=== PATIENT | female | born 1970 | race Caucasian/White ===

== ENCOUNTER 2020-04-22 07:51 | Outpatient (REF) | payer OTHER, SELFPAY ==
--- NOTE | 2020-04-22 08:10 | MR_ITS ---
EXAMINATION: MR BRAIN WITHOUT AND WITH CONTRAST CLINICAL INFORMATION: Pseudotumor. Chiari malformation. Headache. COMPARISON: Head CT 08/29/2019. TECHNIQUE: Multiplanar, multisequence imaging of the brain was performed before and after the intravenous administration of 10 mL of Gadavist. FINDINGS: There is no acute infarct, lobar hemorrhage, mass, or extra-axial fluid collection. Mild nonspecific foci of T2 hyperintensity are seen in the bilateral cerebral white matter. The ventricular caliber appears normal without hydrocephalus. No enhancing lesion is seen. Sequela of Chiari I decompression is noted. There is no effacement of the cervicomedullary CSF. The upper cervical cord is grossly normal without syrinx. The previously seen pseudomeningocele has resolved. The major arterial flow voids are preserved at the skull base. The orbital contents appear normal. No significant paranasal sinus or mastoid fluid is seen. MR/MR head/brain wo/w con IMPRESSION: No acute intracranial abnormality identified. No infarct or enhancing lesion. Sequela of Chiari I decompression noted with interval resolution of previous pseudomeningocele.
== END 2020-04-22 07:52 | disposition home or self-care (01) ==
LOC: HO.MRI 07:51
PROVIDERS: PCP Internal Medicine; Visit Provider Neurological Surgery
DX: G93.2 Benign intracranial hypertension (principal); G93.5 Compression of brain; R51.9 Headache, unspecified; I82.0 Budd-Chiari syndrome
CPT/HCPCS: 70553; A9585

== ENCOUNTER 2020-07-12 13:30 | Outpatient (REF) | payer OTHER, SELFPAY ==
--- NOTE | 2020-07-12 13:35 | XR_ITS ---
EXAMINATION: XR KNEE, LEFT CLINICAL INFORMATION: Sprain COMPARISON: Previous x-ray September 2019 TECHNIQUE: Four views of the left knee. FINDINGS: Bone alignment is normal. No fracture or dislocation is seen. There are small osteophytes at the medial femoral tibial joint. Joint spaces are otherwise normal. There is no joint effusion. XR/XR knee LT 4V IMPRESSION: No fracture or dislocation. Mild degenerative changes.
== END 2020-07-12 13:31 | disposition home or self-care (01) ==
LOC: HO.HMGCX 13:30
PROVIDERS: PCP Internal Medicine; Visit Provider Physician Assistant
DX: S83.422A Sprain of lateral collateral ligament of left knee, initial encounter (principal)
CPT/HCPCS: 73564

== ENCOUNTER 2020-07-19 19:48 | Emergency (ER) | payer OTHER, SELFPAY | END 2020-07-19 21:41 | disposition left against medical advice (07) | PROVIDERS: Emergency Provider Emergency Medicine; PCP Internal Medicine | DX: T14.90XA Injury, unspecified, initial encounter (principal); W19.XXXA Unspecified fall, initial encounter; Y93.9 Activity, unspecified; Y92.9 Unspecified place or not applicable; Y99.9 Unspecified external cause status ==

== ENCOUNTER 2020-07-26 12:00 | Outpatient (REF) | payer OTHER, SELFPAY ==
--- NOTE | ~2020-07-26 | XR_ITS ---
EXAMINATION: XR KNEE, LEFT CLINICAL INFORMATION: Pain COMPARISON: Previous x-ray 07/12/2020 TECHNIQUE: Four views of the left knee. FINDINGS: Bone alignment is normal. No fracture or dislocation is seen. There is joint space narrowing and osteophyte formation at the medial femoral tibial joint. There are small osteophytes at the patellofemoral joint. There is a small joint effusion. XR/XR knee LT 4V IMPRESSION: Mild degenerative changes.
== END 2020-07-26 12:01 | disposition home or self-care (01) ==
LOC: HO.XRAY 12:00
PROVIDERS: PCP Internal Medicine; Visit Provider Nurse Practitioner Family
DX: M25.562 Pain in left knee (principal)
CPT/HCPCS: 73564

== ENCOUNTER 2020-08-04 20:11 | Emergency (ER) | payer OTHER, SELFPAY ==
[2020-08-04 20:26] VITALS: BP 117/57; BP 122/83; PULSE 79; PULSE 80; RESP 17; TEMP 37.1; O2SAT 99; BMI 41.5
[2020-08-04 21:02] LABS: Basophils Percent Auto 0.3 % (0-2); Eosinophils Absolute Auto 0.2 X10*3/uL (0.0-0.4); Eosinophils Percent Auto 3.9 % (0-4); Hematocrit 32.2 % (37-47); Hemoglobin 10.4 g/dl (12.0-16.0); Imm Gran Abs Auto 0.01 X10*3/uL (0.00-0.03); Imm Gran Pct Auto 0.2 % (0.0-0.4); Lymphocytes Absolute Auto 1.5 X10*3/uL (1.2-4.9); Lymphocytes Percent Auto 24.9 % (20-40); MANUAL DIFF FLAG NO; Mean Corpuscular HGB Conc 32.3 g/dl (31.0-35.0); Mean Corpuscular Hemoglobin 26.3 pg (27.0-33.0); Mean Corpuscular Volume 81.5 fL (80-98); Mean Platelet Volume 9.6 fL (9.4-12.3); Monocytes Absolute Auto 0.4 X10*3/uL (0.1-1.2); Neutrophils Percent Auto 64.7 % (45-73); Platelet Count 177 X10*3/uL (160-400); Red Blood Count 3.95 X10*6/uL (4.20-5.50); White Blood Count 6.2 X10*3/uL (4.8-10.8)
[2020-08-04 21:09] LABS: Prothrombin Time 12.4 SEC (10.8-13.0)
[2020-08-04 21:31] LABS: Anion Gap 13 (12-20); Blood Urea Nitrogen 13 mg/dL (9-16); Calcium 8.7 mg/dL (8.4-10.2); Carbon Dioxide 26 mmol/L (22-29); Chloride 104 mmol/L (96-108); Creatinine Clr Calc Pharmacy 97.2; Estimated Glomerular Filt Rate > 60; Glucose Random 97 mg/dL (60-115); Potassium 3.6 mmol/L (3.3-5.1); Sodium 139 mmol/L (135-145)
--- NOTE | 2020-08-04 21:58 | ED.ABDPAIN ---
HPI - Abdominal Pain General Chief Complaint: Abdominal Pain Stated Complaint: EPIGASTRIC PAIN Time Seen by Provider: 08/04/20 21:09 Source: patient Mode of arrival: EMS History of Present Illness HPI narrative: This is a 49-year-old female with history of gastric ulcer diagnosed on 03/2020 and presents with 2 episodes of epigastric pain, 1 that started yesterday while she was driving and was associated with having completed and evening meal of vegetable soup, lasted approximately 5 minutes, nonradiating, and was not associated with shortness of breath/dizziness/nausea/diaphoresis. However, this evening patient states that she developed epigastric pain, that she describes is ?crushing chest pain?, that radiates into her back and started after eating dinner but persisted without any associated fevers, chills, shortness of breath, dizziness, diaphoresis, but does complain of nausea and states that ?all had to eat was rice and vegetables for dinner?. She does endorse that she began taking Excedrin a couple of days ago for headache despite being counseled by Gastroenterology to avoid any NSAIDs/aspirin-containing medications. In addition, patient denies any symptoms. Patient denies any hematemesis, melena, hematochezia. Related Data Home Medications Medication Instructions Recorded Confirmed buprenorphine 2 mg-naloxone 0.5 mg 2 mg SUBLINGUAL DAILY 07/22/20 07/25/20 sublingual film duloxetine 60 mg capsule,delayed mg PO 07/22/20 07/25/20 release gabapentin 100 mg capsule 0 mg PO 07/22/20 07/25/20 omeprazole 40 mg capsule,delayed 40 mg PO DAILY 07/22/20 07/25/20 release topiramate 200 mg tablet mg PO 07/22/20 07/25/20 trazodone 100 mg tablet 100 mg PO BEDTIME PRN 07/22/20 07/25/20 Previous Rx's Medication Instructions Recorded albuterol sulfate 90 mcg/actuation 2 puff INHALATION Q6H PRN 30 Days 03/19/20 aerosol inhaler #6.7 g varenicline 0.5 mg tablet 0.5 mg PO BID 30 Days #60 tab 07/12/20 acetaminophen 650 mg 650 mg PO Q12H PRN 30 Days #30 tab 07/22/20 tablet,extended release cyclobenzaprine 10 mg tablet 10 mg PO BEDTIME PRN 30 Days #30 07/22/20 tab sucralfate [Carafate] 1 g PO BID #60 tab 08/04/20 Allergies Allergy/AdvReac Type Severity Reaction Status Date / Time amoxicillin [AMOXICILLIN] Allergy Unknown RASH Unverified 02/26/20 16:48 carbamazepine [From TEGRETOL] Allergy Unknown RASH Unverified 02/26/20 16:48 Erythromycin Allergy Unknown rash Unverified 12/19/19 00:00 erythromycin base Allergy Unknown RASH Unverified 02/26/20 16:48 [ERYTHROMYCIN BASE] ketorolac Allergy Unknown anaphylaxis Verified 09/15/19 00:00 penicillin V Allergy Unknown rash Unverified 12/19/19 00:00 Penicillins [PENICILLINS] Allergy Unknown RASH Unverified 02/26/20 16:48 From TORADOL Allergy Unknown ANAPHYLAXIS Uncoded 02/26/20 16:48 toradol Allergy Unknown anaphylaxis Uncoded 12/19/19 00:00 Review of Systems Review of Systems Pertinent positives and negatives as stated in HPI 10 point review of systems is otherwise negative. Physical Exam Vital Signs: Vital Signs: Last Vital Signs Temp 98.7 F 08/04/20 20:26 Pulse 79 08/04/20 20:26 Resp 17 08/04/20 20:26 BP 117/57 L 08/04/20 20:26 Pulse Ox 99 08/04/20 20:26 Body Mass Index 41.5 VITAL SIGNS: Reviewed. GENERAL: Well developed, well nourished, in no acute distress. OROPHARYNX: no oral lesions noted, posterior pharynx clear NECK: Supple, no adenopathy LUNGS: Normal breath sounds. No adventitious sounds or accessory muscle use. SpO2<99> CARDIOVASCULAR: Regular rate and rhythm without noted murmurs, no JVD or lower extremity edema. ABDOMEN: Soft, mild tenderness without rebound over the epigastrium (scars consistent with cholecystectomy), non-distended with bowel sounds. SKIN: Inspection of the skin reveals no rashes NEUROLOGIC: Alert and oriented x 4. Course Course Course Narrative: This is a 49-year-old female with history and clinical presentation consistent with likely gastric ulcer, exacerbated by recent ingestion Excedrin. There is no evidence to suggest GI bleeding on review of laboratory workup or in provided history by patient. Although patient reports crushing chest pain there is limited evidence to support cardiac etiology. However, this will be ruled out. Patient provided with a GI cocktail and on re-evaluation has had significant reduction in her pain. All investigations were reviewed without acute findings from chronically stable conditions. EKG is without any acute changes from comparison and troponin is negative. Patient is now complaining of migraine headache and states that she usually gets morphine. Patient was given a combination of Reglan/Benadryl and instructed to follow-up with her primary care provider as well as her construction carpenter for further outpatient management of her existing conditions. MDM - Abdominal Pain Lab Data Result diagrams: 08/04/20 20:47 08/04/20 20:47 Labs: Lab Results 08/04/20 08/04/20 08/04/20 Range/Units 20:47 20:47 20:48 WBC 6.2 (4.8-10.8) X10*3/uL RBC 3.95 L (4.20-5.50) X10*6/uL Hgb 10.4 L (12.0-16.0) g/dl Hct 32.2 L (37-47) % MCV 81.5 (80-98) fL MCH 26.3 L (27.0-33.0) pg MCHC 32.3 (31.0-35.0) g/dl RDW 14.0 (11.0-16.0) % Plt Count 177 (160-400) X10*3/uL MPV 9.6 (9.4-12.3) fL Immature Gran % (Auto) 0.2 (0.0-0.4) % Neut % (Auto) 64.7 (45-73) % Lymph % (Auto) 24.9 (20-40) % [place] % (Auto) 6.0 (2-11) % Eos % (Auto) 3.9 (0-4) % Baso % (Auto) 0.3 (0-2) % Lymph # (Auto) 1.5 (1.2-4.9) X10*3/uL [place] # (Auto) 0.4 (0.1-1.2) X10*3/uL Eos # (Auto) 0.2 (0.0-0.4) X10*3/uL Baso # (Auto) 0.0 (0.0-0.2) X10*3/uL Abs Immat Gran (auto) 0.01 (0.00-0.03) X10*3/uL Absolute Neuts (auto) 4.0 (2.0-8.3) X10*3/uL Absolute Nucleated RBC 0.000 (0.0-0.012) X10*3/uL Nucleated RBC % (auto) 0.0 (0.0-0.2) /100WBC PT 12.4 (10.8-13.0) SEC INR 1.0 (0.9-1.1) Sodium 139 (135-145) mmol/L Potassium 3.6 (3.3-5.1) mmol/L Chloride 104 (96-108) mmol/L Carbon Dioxide 26 (22-29) mmol/L Anion Gap 13 (12-20) BUN 13 (9-16) mg/dL Creatinine 0.72 (0.5-1.4) mg/dL Estim Creat Clear Calc 97.2 Estimated GFR > 60 Random Glucose 97 (60-115) mg/dL Calcium 8.7 (8.4-10.2) mg/dL Lipase 18 (8-78) U/L Urine Color Urine Appearance Urine pH (5.0-8.0) Ur Specific Ranger (1.005-1.025) Urine Protein (NEG-TRACE) MG/DL Urine Glucose (UA) (NEG) MG/DL Urine Ketones (NEG) MG/DL Urine Blood (NEG) Urine Nitrite (NEG) Ur Leukocyte Esterase (NEG) 08/04/20 Range/Units 22:24 WBC (4.8-10.8) X10*3/uL RBC (4.20-5.50) X10*6/uL Hgb (12.0-16.0) g/dl Hct (37-47) % MCV (80-98) fL MCH (27.0-33.0) pg MCHC (31.0-35.0) g/dl RDW (11.0-16.0) % Plt Count (160-400) X10*3/uL MPV (9.4-12.3) fL Immature Gran % (Auto) (0.0-0.4) % Neut % (Auto) (45-73) % Lymph % (Auto) (20-40) % [place] % (Auto) (2-11) % Eos % (Auto) (0-4) % Baso % (Auto) (0-2) % Lymph # (Auto) (1.2-4.9) X10*3/uL [place] # (Auto) (0.1-1.2) X10*3/uL Eos # (Auto) (0.0-0.4) X10*3/uL Baso # (Auto) (0.0-0.2) X10*3/uL Abs Immat Gran (auto) (0.00-0.03) X10*3/uL Absolute Neuts (auto) (2.0-8.3) X10*3/uL Absolute Nucleated RBC (0.0-0.012) X10*3/uL Nucleated RBC % (auto) (0.0-0.2) /100WBC PT (10.8-13.0) SEC INR (0.9-1.1) Sodium (135-145) mmol/L Potassium (3.3-5.1) mmol/L Chloride (96-108) mmol/L Carbon Dioxide (22-29) mmol/L Anion Gap (12-20) BUN (9-16) mg/dL Creatinine (0.5-1.4) mg/dL Estim Creat Clear Calc Estimated GFR Random Glucose (60-115) mg/dL Calcium (8.4-10.2) mg/dL Lipase (8-78) U/L Urine Color YELLOW Urine Appearance CLEAR Urine pH 6.0 (5.0-8.0) Ur Specific Ranger 1.015 (1.005-1.025) Urine Protein NEG (NEG-TRACE) MG/DL Urine Glucose (UA) NEG (NEG) MG/DL Urine Ketones NEG (NEG) MG/DL Urine Blood NEG (NEG) Urine Nitrite NEG (NEG) Ur Leukocyte Esterase NEG (NEG) ECG Data Attestation: I personally reviewed and interpreted this ECG as follows: Prior ECG tracings: available for review (05/09/2018 no acute changes on comparison) Interpretation: Normal sinus rhythm, HR-81, no evidence of acute ischemia, AR/QRS/QTC are within normal limits. Discharge Plan Discharge Clinical Impression: Epigastric abdominal pain Patient Disposition: Home, Self-Care Instructions: Gastritis (ED), Diet for Stomach Ulcers and Gastritis (ED) Additional Instructions: 1. Resume all home medications as prescribed, but recommend that you increase your Prilosec to twice a day until you are evaluated by your primary care provider as well as your construction carpenter with whom you should call tomorrow morning to set up re-evaluation appointments. 2. Please review recommendations for dietary and medication considerations to reduce her symptoms. 3. Increase fluid hydration Do not hesitate to return to the emergency department should you experience worsening symptoms. Prescriptions: New sucralfate [Carafate] 1 gram tablet 1 g PO BID Qty: 60 RF: 0 No Action albuterol sulfate 90 mcg/actuation HFA aerosol inhaler 2 puff inhalation Q6H PRN (Reason: shortness of breath or wheezing) 30 Days Qty: 6.7 RF: 6 Chantix 0.5 mg tablet 0.5 mg PO BID 30 Days Qty: 60 RF: 2 omeprazole 40 mg capsule,delayed release(DR/EC) 40 mg PO DAILY RF: 0 buprenorphine-naloxone 2-0.5 mg film 2 mg sublingual DAILY RF: 0 trazodone 100 mg tablet 100 mg PO BEDTIME PRNRF: 0 duloxetine 60 mg capsule,delayed release(DR/EC) PO RF: 0 gabapentin 100 mg capsule 0 mg PO RF: 0 topiramate 200 mg tablet PO RF: 0 cyclobenzaprine 10 mg tablet 10 mg PO BEDTIME PRN (Reason: muscle spasm) 30 Days Qty: 30 RF: 0 acetaminophen [Tylenol Arthritis Pain] 650 mg tablet extended release 650 mg PO Q12H PRN (Reason: pain) 30 Days Qty: 30 RF: 0 Referrals: Sasha Pastrana MD [Primary Care Provider] - 2 days (Patient needs re-evaluation for gastritis versus possible gastric ulcer with possible referral to her construction carpenter. She was started on Carafate and instructed to increase her omeprazole to twice a day.) [facility] Past Medical History Source: nursing notes reviewed Medical History Depression with anxiety GERD (gastroesophageal reflux disease) Hyperlipidemia Insomnia Left knee pain Obesity Pseudotumor cerebri PTSD (post-traumatic stress disorder) Family History Family History Father No problems noted. Social History Social History Alcohol intake: unknown Smoking Status: Unknown if ever smoked Use of substances other than those prescribed or required for medical reasons: Unknown Advance Directives: No Advance Directives Information Provided: Yes
[2020-08-04 22:08] LABS: Lipase 18 U/L (8-78)
--- NOTE | 2020-08-04 22:09 | ECG_ITS ---
Test Reason : ABDOMINAL PAIN Blood Pressure : / mmHG Vent. Rate : 081 BPM Atrial Rate : 081 BPM P-R Int : 198 ms QRS Dur : 088 ms QT Int : 394 ms P-R-T Axes : 048 -02 039 degrees QTc Int : 457 ms Normal sinus rhythm Inferior infarct , age undetermined Anterior infarct (cited on or before 04-AUG-2020) Abnormal ECG When compared with ECG of 09-MAY-2018 22:53, Inferior infarct is now Present T wave inversion now evident in Anterior leads Referred By: Mary Uribe Electronically Signed By:ANIRUDH FOSS MD
[2020-08-04] MEDS: Lidocaine HCl Viscous 2 % 15 ML SOLUTION 10 ML MUCOUS MEM (22:18)
[2020-08-04] MEDS: Magnesium Hydrox/Alum Hydrox 30 ML ORAL.SUSP PO (22:18)
[2020-08-04 22:30] LABS: Appearance Urine CLEAR; Color Urine YELLOW; Glucose Urine UA NEG (NEG); Leukocyte Esterase Urine NEG (NEG); Nitrite Urine NEG (NEG); Specific Gravity - Urine 1.015 (1.005-1.025); Urine Blood NEG (NEG); Urine Ketones NEG (NEG); Urine Protein NEG (NEG-TRACE)
[2020-08-04 22:50] VITALS: BP 110/60; PULSE 94; RESP 15; O2SAT 96
[2020-08-04 22:52] LABS: Troponin-I High Sensitivity < 3.5 ng/L (<3.5-17.0)
--- NOTE | 2020-08-04 22:54 | PC.NURSE ---
Patient now complaining of a migraine and asking for IV morphine. MD stated that the patient could have tylenol or im injection of benadryl and reglan as well as 1 litre of fluid. When letting the patient know what the MD response was patient stated that tylenol doesn't work and told this clinical writer to go away
[2020-08-04] MEDS: diphenhydrAMINE HCL 50 MG/ML VIAL 25 MG IM (23:22)
[2020-08-04] MEDS: Metoclopramide HCl 10 MG/2 ML VIAL IM (23:23)
== END 2020-08-04 23:38 | disposition home or self-care (01) ==
PROVIDERS: Emergency Provider Student in an Organized Health Care Education/Training Program; PCP Internal Medicine
DX: R10.13 Epigastric pain (principal); M54.5 Low back pain; R11.0 Nausea; E78.5 Hyperlipidemia, unspecified; Z79.899 Other long term (current) drug therapy
CPT/HCPCS: 36415; 80048; 81003; 83690; 84484; 85025; 85610; 93005; 96372; 99284; J1200; J2765

== ENCOUNTER 2020-08-11 13:09 | Outpatient (REF) | payer OTHER, SELFPAY ==
--- NOTE | ~2020-08-11 | MM_ITS ---
EXAMINATION: MM DIAGNOSTIC DIGITAL BREAST TOMOSYNTHESIS, RIGHT CLINICAL INFORMATION: Short interval follow-up from right stereotactic biopsy 12/17/2023 asymmetric density upper outer right breast. Final pathology: Benign breast parenchyma. No atypia or malignancy. The lifetime risk of breast cancer based on the Tyrer-Cuzick Model is 11%. COMPARISON: Mammography: 12/17/2019, 12/11/2019, 12/08/2019 (BI-RADS 0), 12/02/2018, 09/17/2017 TECHNIQUE: Digital breast tomosynthesis is performed in both the craniocaudal and mediolateral oblique views along with computer-aided detection (CAD). Synthesized 2D images are generated from the tomosynthesis. FINDINGS: There are scattered areas of fibroglandular density (ACR BI-RADS breast composition Category b). The asymmetric density upper outer quadrant mid depth appears less conspicuous when compared with prior exam 12/08/2019. The biopsy clip marker resides 4 cm medial and 3.7 cm inferior to the parenchymal density. There is no developing density or interval mass or architectural abnormality. No suspicious changes. The remainder of the right breast is unremarkable. Results are provided to the patient at time of visit by the technologist. Right breast will be reassessed again in 6 months at time of annual bilateral mammography to continue surveillance and exclude remote possibility of a developing density. MM/MM tomosynthesis diagnostic RT IMPRESSION: The asymmetric density upper outer right breast mid depth appears less conspicuous when compared with the prior exam 12/08/2019. The biopsy clip marker is in the area medial to the asymmetry. Suggest continue follow-up surveillance at next annual bilateral mammography. ASSESSMENT: BI-RADS 3: Probably Benign RECOMMENDATION: Diagnostic mammography at time of annual bilateral mammography, due in 6 months. This patient's information was entered into a reminder system with a target due date for their next mammogram.
== END 2020-08-11 13:10 | disposition home or self-care (01) ==
LOC: HO.MAMMO 13:09
PROVIDERS: PCP Internal Medicine; Visit Provider Internal Medicine
DX: R92.1 Mammographic calcification found on diagnostic imaging of breast (principal); Z98.890 Other specified postprocedural states
CPT/HCPCS: 77061; 77065

== ENCOUNTER → 2020-09-16 09:54 | Outpatient (BNVA) | payer OTHER, SELFPAY | PROVIDERS: PCP Internal Medicine; Visit Provider Internal Medicine Cardiovascular Disease | DX: R94.31 Abnormal electrocardiogram [ECG] [EKG] (principal); R07.9 Chest pain, unspecified | CPT/HCPCS: 99202 ==

== ENCOUNTER → 2020-09-22 09:15 | Outpatient (REF) | payer OTHER, SELFPAY ==
--- NOTE | ~2020-09-22 | NM_ITS ---
EXERCISE MYOCARDIAL PERFUSION STUDY INDICATION: Abnormal EKG, chest discomfort, assess for coronary disease and ischemia TECHNIQUE: The patient was brought in for an exercise perfusion study on 09/22/2020. Patient performed exercise as per Hemant protocol and was injected 30 mCi of sestamibi once target heart rate was achieved. Images were obtained using the SPECT gamma camera interlaced with the gating device. Images were obtained in supine position. Resting perfusion study was performed on 09/23/2020. Patient was administered 30 mCi of sestamibi intravenously at rest. Images were then obtained in supine position. Total DLP 102 mGy-cm. Images were processed with the software and compared side to side in short axis, horizontal long axis and vertical long axis views. FINDINGS: Raw images were reviewed. The stress perfusion study showed no significant perfusion defects. Both uncorrected as well as CT attenuation corrected images were reviewed. The gated study shows normal LV systolic function with calculated LVEF of > 75%. LV cavity is normal in size. The gated study shows normal wall thickening and contraction of segments. Resting study shows no significant perfusion defects. Gating at rest reveals normal wall motion with ejection fraction at 75%. The findings are consistent with no reversible or fixed perfusion defects. NM/NM nery perf SPECT rest & str IMPRESSION: 1. Myocardial perfusion imaging study shows normal myocardial perfusion. 2. Gated LVEF is > 75%. 3. Transient ischemic dilatation not present. EKG component of the test reported separately.
--- NOTE | 2020-09-22 09:30 | CA_ITS ---
Acquisition Time: 2020-09-22 09:37:12 Total Exercise Time: 00:05:24 Test Indications: Abnormal ECG Medications: ALBUTEROL ASA CYCLOBENZAPRINE DULOXETINE Protocol: SAQIB Max HR: 133 BPM 78% of Pred: 170 BPM Max BP: 170/070 mmHG Max Work Load: 4.6 METS Exercise stress nuclear using Saqib protocol, tstage 2 held and incline decreased. Total of 5 min 24 sec. METS 4.50 and TAPHR up to 78 %. Pt was fatigued, c/o SOB, Denies CP. EKG with no ischemic changes, however suboptimal as TAPHR up to 78 %. Nuclear images to follow. Normotensive response to exercise. Test reviewed with Dr. Carmen. Referred By: Kevin Albrecht Overread By: Flory Griggs NP
== END ==
LOC: HO.CARD 09:15
PROVIDERS: Visit Provider Internal Medicine Cardiovascular Disease
DX: R94.31 Abnormal electrocardiogram [ECG] [EKG] (principal)
CPT/HCPCS: 78452; 93016; 93017; 93018; A9500

== ENCOUNTER 2020-10-18 13:10 | Outpatient (REF) | payer OTHER, SELFPAY ==
--- NOTE | ~2020-10-18 | XR_ITS ---
EXAMINATION: XR KNEE, LEFT CLINICAL INFORMATION: Left knee pain COMPARISON: 07/26/2020 TECHNIQUE: Four views of the left knee. FINDINGS: Mild to moderate tricompartmental osteoarthritis, most prominent in the medial compartment, not significantly changed. No fracture. No joint effusion. No suspicious soft tissue calcifications. XR/XR knee LT 4V IMPRESSION: Mild to moderate tricompartmental osteoarthritis, unchanged.
== END 2020-10-18 13:11 | disposition home or self-care (01) ==
LOC: HO.HMGCX 13:10
PROVIDERS: PCP Internal Medicine; Visit Provider Hospitalist
DX: M25.562 Pain in left knee (principal)
CPT/HCPCS: 73564

== ENCOUNTER 2020-10-20 11:29 | Emergency (ER) | payer OTHER, SELFPAY ==
[2020-10-20 11:39] VITALS: BP 122/64; PULSE 88; RESP 18; TEMP 36.1; O2SAT 97; BMI 40.8
--- NOTE | 2020-10-20 13:02 | ED.LOWEXIN ---
HPI - Extremity Injury (Lower) General Chief Complaint: Extremity Injury, Lower Stated Complaint: lt knee pain - injury Time Seen by Provider: 10/20/20 12:26 Source: patient Mode of arrival: ambulatory History of Present Illness HPI Narrative: 50-year-old female with a past medical history of PTSD, GERD, depression, anxiety, hyperlipidemia, iron deficiency anemia, obesity, complaining of left knee pain s/p dog pulled her over while on walk on leash on Sunday. Patient admits to fall, landed on knee, was seen at [facility] after incident had x-rays that showed mild to moderate tricompartmental osteoarthritis however reports pain continued, radiating up the leg. Denies numbness, tingling, weakness MD complaint: knee injury Related Data Home Medications Medication Instructions Recorded Confirmed buprenorphine 2 mg-naloxone 0.5 mg 2 mg SUBLINGUAL DAILY 07/22/20 10/18/20 sublingual film duloxetine 60 mg capsule,delayed mg PO 07/22/20 10/18/20 release gabapentin 100 mg capsule 0 mg PO 07/22/20 10/18/20 omeprazole 40 mg capsule,delayed 40 mg PO DAILY 07/22/20 10/18/20 release topiramate 200 mg tablet mg PO 07/22/20 10/18/20 Previous Rx's Medication Instructions Recorded albuterol sulfate 90 mcg/actuation 2 puff INHALATION Q6H PRN 30 Days 03/19/20 aerosol inhaler #6.7 g varenicline 0.5 mg tablet 0.5 mg PO BID 30 Days #60 tab 07/12/20 acetaminophen 650 mg 650 mg PO Q12H PRN 30 Days #30 tab 07/22/20 tablet,extended release cyclobenzaprine 10 mg tablet 10 mg PO BEDTIME PRN 30 Days #30 07/22/20 tab sucralfate [Carafate] 1 g PO BID #60 tab 08/04/20 aspirin 81 mg tablet,delayed 81 mg PO DAILY 90 Days #90 tab 08/19/20 release prednisone 20 mg tablet 20 mg PO .COMPLEX #18 tab 10/18/20 acetaminophen [Tylenol Extra 500 mg PO Q6H PRN #20 tab 10/20/20 Strength] lidocaine [Lidoderm] 1 patch TOPICAL DAILY PRN #30 ea 10/20/20 MDD remove after 12 hours Allergies Allergy/AdvReac Type Severity Reaction Status Date / Time amoxicillin [AMOXICILLIN] Allergy Unknown RASH Verified 10/20/20 11:44 carbamazepine [From TEGRETOL] Allergy Unknown RASH Verified 10/20/20 11:44 Erythromycin Allergy Unknown rash Verified 10/20/20 11:44 ketorolac Allergy Unknown anaphylaxis Verified 10/20/20 11:44 Penicillins [PENICILLINS] Allergy Unknown RASH Verified 10/20/20 11:44 toradol Allergy Unknown anaphylaxis Uncoded 10/18/20 13:01 Review of Systems Review of Systems: Constitutional: No Fever, No Chills Cardiovascular: No Chest Pain, No SOB Respiratory: No Cough, No Sputum, No Wheezing Gastrointestinal: No Nausea, No Vomiting, No Abdominal pain Musculoskeletal: + joint pain, No Myalgias, + Joint Swelling Skin: No Skin Lesions, No rash Neuro: No Weakness, No Numbness, No Paresthesias Yes all other systems are reviewed and are negative [facility] Past Medical History Attestation statement: The following information was validated with the patient. Medical History Abnormal EKG Depression with anxiety GERD (gastroesophageal reflux disease) Hyperlipidemia Insomnia Iron deficiency anemia Left knee pain Obesity Pseudotumor cerebri PTSD (post-traumatic stress disorder) Surgical History H/O total hysterectomy History of back surgery History of cholecystectomy History of eye surgery History of surgery of head Family History Family History Father No problems noted. Social History Social History Alcohol intake: never Smoking Status: Former smoker Advance Directives: No Advance Directives Information Provided: No Patient : No Physical Exam Vital Signs: Vital Signs: Last Vital Signs Temp 97.0 F 10/20/20 11:39 Pulse 88 10/20/20 11:39 Resp 18 10/20/20 11:39 BP 122/64 10/20/20 11:39 Pulse Ox 97 10/20/20 11:39 Body Mass Index 40.8 Const: General: cooperative and healthy appearing Orientation/consciousness: patient oriented x3 Limitations: no limitations HENMT: Head: Yes normal to inspection Ears: hearing grossly normal bilaterally General nose exam: Normal external nose present Face and sinus: Yes normal facial exam Eyes: General: appearance normal, both eyes and all related structures EOM: EOMs intact bilaterally Neck: Neck: Yes normal visual inspection and Yes no meningeal signs Resp: Effort & Inspection: normal respiratory effort Cardio: Rate: regular rate Peripheral pulses: dorsalis pedis present Skin: Rashes: no rashes Wounds: no wounds Neuro: General: patient oriented x3, tone normal, moves all extremities and no meningeal signs Extrem: Other: Left knee with mild swelling > medial aspect. +ttp. Decreased flexion secondary to pain. Neurovascular intact distally. No appreciable bony deformity Course Course Course Narrative: 1328--I originally prescribed tramadol for patient's persistent unremitting pain, pharmacy called to inform she is a Suboxone patient, thus, Cancelled prescription, however accidentally canceled trazodone, I called and fixed issue with [facility] pharmacy, patient should continue her trazodone MDM - Extremity Injury (Lower) MDM Narrative Medical decision making narrative: 50-year-old female with a past medical history of PTSD, GERD, depression, anxiety, hyperlipidemia, iron deficiency anemia, obesity, complaining of left knee pain s/p dog pulled her over while on walk on leash on Sunday. On exam VSS, NAD, physical exam as above. X-rays reviewed from 10/18, without fracture or dislocation. Likely ligamental/tendon or meniscal injury, this was discussed with patient. Kain wrap applied Will have patient follow-up with PCP/Orthopedics for likely MRI Medical Records Attestation: I reviewed the patient's medical records. Discharge Plan Discharge Clinical Impression: Left knee sprain Qualifiers: Encounter type: initial encounter Patient Disposition: Home, Self-Care Instructions: Knee Pain (ED) Additional Instructions: X-rays from 10/18/2020 showed degenerative/arthritic changes It is likely you have a ligamental/tendon or meniscal injury, this needs an MRI for diagnosis Wear a step at home as needed for comfort/debility Continue taking naproxen, Tylenol at home for pain/swelling Prescriptions: New acetaminophen [Tylenol Extra Strength] 500 mg tablet 500 mg PO Q6H PRN (Reason: pain or fever) Qty: 20 RF: 0 lidocaine [Lidoderm] 5 % adhesive patch,medicated 1 patch topical DAILY MDD remove after 12 hours PRN (Reason: pain) Qty: 30 RF: 0 Discontinued trazodone 100 mg tablet 100 mg PO BEDTIME PRNRF: 0 No Action albuterol sulfate 90 mcg/actuation HFA aerosol inhaler 2 puff inhalation Q6H PRN (Reason: shortness of breath or wheezing) 30 Days Qty: 6.7 RF: 6 Chantix 0.5 mg tablet 0.5 mg PO BID 30 Days Qty: 60 RF: 2 sucralfate [Carafate] 1 gram tablet 1 g PO BID Qty: 60 RF: 0 omeprazole 40 mg capsule,delayed release(DR/EC) 40 mg PO DAILY RF: 0 buprenorphine-naloxone 2-0.5 mg film 2 mg sublingual DAILY RF: 0 duloxetine 60 mg capsule,delayed release(DR/EC) PO RF: 0 gabapentin 100 mg capsule 0 mg PO RF: 0 topiramate 200 mg tablet PO RF: 0 cyclobenzaprine 10 mg tablet 10 mg PO BEDTIME PRN (Reason: muscle spasm) 30 Days Qty: 30 RF: 0 acetaminophen [Tylenol Arthritis Pain] 650 mg tablet extended release 650 mg PO Q12H PRN (Reason: pain) 30 Days Qty: 30 RF: 0 aspirin 81 mg tablet,delayed release (DR/EC) 81 mg PO DAILY 90 Days Qty: 90 RF: 1 prednisone 20 mg tablet 20 mg PO .COMPLEX Qty: 18 RF: 0 Referrals: Ruiz Ron PA-C [Physician Grain Merchandising Manager] - 5 days Sasha Pastrana MD [Primary Care Provider] - 2 days Discharge Date/Time: 10/20/20 13:23
== END 2020-10-20 13:23 | disposition home or self-care (01) ==
PROVIDERS: Emergency Provider Emergency Medicine Emergency Medical Services; PCP Internal Medicine
DX: S83.92XA Sprain of unspecified site of left knee, initial encounter (principal); X50.1XXA Overexertion from prolonged static or awkward postures, initial encounter; F11.20 Opioid dependence, uncomplicated; Y93.K1 Activity, walking an animal; Y92.480 Sidewalk as the place of occurrence of the external cause; Y99.9 Unspecified external cause status
CPT/HCPCS: 99283

== ENCOUNTER 2020-11-05 07:15 | Outpatient (REF) | payer OTHER, SELFPAY ==
--- NOTE | ~2020-11-05 | XR_ITS ---
EXAMINATION: KNEE X-RAY CLINICAL INFORMATION: Left knee pain COMPARISON: Previous x-rays most recent 10/18/2020 TECHNIQUE: Standing AP view of both knees and lateral and sunrise view of the left knee FINDINGS: Left knee: Bone alignment is normal. No fracture or dislocation is seen. There is arthritis at the medial femoral tibial joint with joint space narrowing and osteophyte formation. There are small osteophytes at the patellofemoral joint. There is a moderate to large joint effusion. Standing AP view of the right knee demonstrates degenerative change at the medial femoral tibial joint. XR/XR knee LT 2V IMPRESSION: Left knee: Mild arthritis and moderate to large joint effusion.
--- NOTE | ~2020-11-05 | XR_ITS ---
EXAMINATION: KNEE X-RAY CLINICAL INFORMATION: Left knee pain COMPARISON: Previous x-rays most recent 10/18/2020 TECHNIQUE: Standing AP view of both knees and lateral and sunrise view of the left knee FINDINGS: Left knee: Bone alignment is normal. No fracture or dislocation is seen. There is arthritis at the medial femoral tibial joint with joint space narrowing and osteophyte formation. There are small osteophytes at the patellofemoral joint. There is a moderate to large joint effusion. Standing AP view of the right knee demonstrates degenerative change at the medial femoral tibial joint. XR/XR knee standing BI IMPRESSION: Left knee: Mild arthritis and moderate to large joint effusion.
== END 2020-11-05 07:16 | disposition home or self-care (01) ==
LOC: HO.HOSX 07:15
PROVIDERS: Visit Provider Physician Assistant
DX: M17.12 Unilateral primary osteoarthritis, left knee (principal)
CPT/HCPCS: 20610; 73560; 73565; 99212; J1040

== ENCOUNTER → 2020-11-18 09:56 | Outpatient (BNVA) | payer OTHER, SELFPAY | PROVIDERS: PCP Internal Medicine; Referring Provider Internal Medicine; Visit Provider Internal Medicine Cardiovascular Disease | DX: R07.9 Chest pain, unspecified (principal); R06.00 Dyspnea, unspecified; R94.31 Abnormal electrocardiogram [ECG] [EKG]; Z79.899 Other long term (current) drug therapy | CPT/HCPCS: 99212 ==

== ENCOUNTER 2020-12-01 16:35 | Outpatient (REF) | payer OTHER, SELFPAY ==
--- NOTE | ~2020-12-01 | XR_ITS ---
EXAMINATION: XR HAND, RIGHT CLINICAL INFORMATION: Injury to right wrist and hand COMPARISON: None TECHNIQUE: PA, lateral, and oblique views of the right hand. FINDINGS: The bones and soft tissues are normal. No fracture. Alignment is anatomic. Joint spaces are maintained. No erosions or soft tissue calcifications. XR/XR hand RT min 3V IMPRESSION: Normal right hand.
== END 2020-12-01 16:36 | disposition home or self-care (01) ==
LOC: HO.HMGCX 16:35
PROVIDERS: PCP Internal Medicine; Visit Provider Nurse Practitioner Family
DX: S69.91XA Unspecified injury of right wrist, hand and finger(s), initial encounter (principal)
CPT/HCPCS: 73130

== ENCOUNTER 2020-12-14 09:50 | Outpatient (REF) | payer OTHER, SELFPAY ==
--- NOTE | ~2020-12-14 | MM_ITS ---
EXAMINATION: MM DIAGNOSTIC DIGITAL BREAST TOMOSYNTHESIS, BILATERAL CLINICAL INFORMATION: Due for yearly. Also follow-up benign right stereotactic biopsy for asymmetric density mid upper outer right breast (12/17/2019: Benign breast parenchyma, no atypia or malignancy). The lifetime risk of breast cancer based on the Tyrer-Cuzick Model is 4%. COMPARISON: Mammography: 08/11/2020, 12/17/2019, 12/11/2019, 12/08/2019 (BI-RADS 0), 12/02/2018, 09/17/2017, 12/08/2015, 10/17/2013. TECHNIQUE: Digital breast tomosynthesis is performed in both the craniocaudal and mediolateral oblique views along with computer-aided detection (CAD). Synthesized 2D images are generated from the tomosynthesis. FINDINGS: There are scattered areas of fibroglandular density (ACR BI-RADS breast composition Category b). Parenchymal pattern is similar to prior studies. There is no developing density in the area of recent concern mid upper outer right breast. Biopsy clip marker again seen outer right breast. Right breast will be reassessed again in 6 months. The left breast is unremarkable. There is no mass or architectural abnormality. Neither breast shows abnormal calcifications. The axilla and skin contours are unremarkable. Results are provided to the patient by the technologist. MM/MM tomosynthesis diagnostic BI IMPRESSION: 1. Right: No developing density or interval change from prior studies. 2. Left: No mammographic evidence of malignancy. ASSESSMENT: BI-RADS 3: Probably Benign RECOMMENDATION: Diagnostic right mammography in 6 months. This patient's information was entered into a reminder system with a target due date for their next mammogram.
== END 2020-12-14 09:51 | disposition home or self-care (01) ==
LOC: HO.MAMMO 09:50
PROVIDERS: Visit Provider Internal Medicine
DX: R92.2 Inconclusive mammogram (principal)
CPT/HCPCS: 77062; 77066

== ENCOUNTER 2021-02-03 12:51 | Outpatient (REF) | payer OTHER, SELFPAY ==
--- NOTE | ~2021-02-03 | XR_ITS ---
EXAMINATION: RIGHT HAND AND WRIST CLINICAL INFORMATION: Pain COMPARISON: December 01, 2020 TECHNIQUE: 3 views of the left hand and wrist FINDINGS: There is no evidence of acute fracture or dislocation of the left hand or wrist. Joint spaces are generally maintained. There is some mild soft tissue swelling seen overlying the dorsum of the metacarpals. No significant evidence of osteoarthritis or erosive arthritides. XR/XR hand wrist LT IMPRESSION: No significant bony abnormality of the right hand or wrist identified.
== END 2021-02-03 12:52 | disposition home or self-care (01) ==
LOC: HO.HMGCX 12:51
PROVIDERS: PCP Internal Medicine; Visit Provider Hospitalist
DX: M25.532 Pain in left wrist (principal)
CPT/HCPCS: 73110; 73130

== ENCOUNTER 2021-05-23 12:17 | Outpatient (REF) | payer OTHER, SELFPAY ==
[2021-05-23 12:41] LABS: COVID-19 Test Negative (Negative)
== END 2021-05-23 12:18 | disposition home or self-care (01) ==
LOC: HO.LAB 12:17
PROVIDERS: Visit Provider Internal Medicine
DX: Z20.822 Contact with and (suspected) exposure to COVID-19 (principal)
CPT/HCPCS: 36415; 87635; C9803

== ENCOUNTER 2021-07-11 13:36 | Outpatient (REF) | payer OTHER, SELFPAY ==
[2021-07-11 13:58] LABS: MANUAL DIFF FLAG NO
[2021-07-11 14:46] LABS: Basophils Percent Auto 0.5 % (0-2); Eosinophils Absolute Auto 0.2 X10*3/uL (0.0-0.4); Eosinophils Percent Auto 1.7 % (0-4); Hematocrit 40.7 % (37.0-47.0); Hemoglobin 13.4 g/dl (12.0-16.0); Imm Gran Abs Auto 0.03 X10*3/uL (0.00-0.03); Imm Gran Pct Auto 0.3 % (0.0-0.4); Lymphocytes Absolute Auto 1.5 X10*3/uL (1.2-4.9); Lymphocytes Percent Auto 16.7 % (20-40); Mean Corpuscular HGB Conc 32.9 g/dl (31.0-35.0); Mean Corpuscular Hemoglobin 28.2 pg (27.0-33.0); Mean Corpuscular Volume 85.7 fL (80.0-98.0); Mean Platelet Volume 10.4 fL (9.4-12.3); Monocytes Absolute Auto 0.5 X10*3/uL (0.1-1.2); Monocytes Percent Auto 5.1 % (2-11); Neutrophils Absolute Auto 6.6 x10*3/uL (2.0-8.3); Neutrophils Percent Auto 75.7 % (45-73); Platelet Count 212 X10*3/uL (160-400); Red Blood Count 4.75 X10*6/uL (4.20-5.50); Red Cell Distribution Width 14.1 % (11.0-16.0); White Blood Count 8.8 X10*3/uL (4.8-10.8)
[2021-07-11 15:21] LABS: Alanine Aminotransferase 12 U/L (0-31); Albumin Level 4.4 g/dL (3.5-5.0); Alkaline Phosphatase 110 U/L (39-117); Anion Gap 13 (12-20); Aspartate Amino Transferase 16 U/L (5-31); Bilirubin Total 0.4 mg/dL (0.0-1.0); Blood Urea Nitrogen 13 mg/dL (9-16); Calcium 9.9 mg/dL (8.4-10.2); Carbon Dioxide 25 mmol/L (22-29); Chloride 108 mmol/L (96-108); Cholesterol 239 mg/dL; Estimated Glomerular Filt Rate > 60; Glucose Fasting 105 mg/dL (60-99); HDL Cholesterol 46 mg/dL; LDL Cholesterol Calculated 157 mg/dl; Potassium 3.6 mmol/L (3.3-5.1); Sodium 142 mmol/L (135-145); Total Protein 7.4 g/dL (6.5-8.0); Triglycerides 180 mg/dL
[2021-07-11 15:33] LABS: Free T4 (Free Thyroxine) 0.91 ng/dL (0.71-1.85); Thyroid Stimulating Hormone 1.37 uIU/mL (0.32-4.0)
== END 2021-07-11 13:37 | disposition home or self-care (01) ==
LOC: HO.LAB 13:36
PROVIDERS: PCP Internal Medicine; Visit Provider Internal Medicine
DX: Z20.822 Contact with and (suspected) exposure to COVID-19 (principal); E66.3 Overweight; D64.9 Anemia, unspecified; G43.909 Migraine, unspecified, not intractable, without status migrainosus; R63.4 Abnormal weight loss
CPT/HCPCS: 36415; 80053; 80061; 84439; 84443; 85025; 93005; 99212; U0003; U0005

== ENCOUNTER 2022-02-03 15:37 | Emergency (ER) | payer OTHER, SELFPAY | END 2022-02-03 17:51 | disposition left against medical advice (07) | PROVIDERS: Emergency Provider Emergency Medicine; PCP Internal Medicine | DX: G43.909 Migraine, unspecified, not intractable, without status migrainosus (principal) ==

== ENCOUNTER 2022-07-27 15:32 | Outpatient (REF) | payer OTHER, SELFPAY ==
--- NOTE | ~2022-07-27 | MM_ITS ---
EXAMINATION: MM DIAGNOSTIC DIGITAL BREAST TOMOSYNTHESIS, BILATERAL US DIAGNOSTIC ULTRASOUND BREAST, RIGHT CLINICAL INFORMATION: Due for yearly. At time of screening appointment, patient notes recent history palpable concern mid medial right breast with tenderness and mild skin yellow. Only mild tenderness today. Known weight loss since prior mammography. COMPARISON: Mammography: Multiple prior exams, most recent 08/11/2020. TECHNIQUE: Digital breast tomosynthesis is performed in both the craniocaudal and mediolateral oblique views along with computer-aided detection (CAD). Synthesized 2D images are generated from the tomosynthesis. Ultrasound right breast is targeted to the area of clinical concern. Patient is able to point to area of concern at time of imaging. Grayscale imaging and color Doppler are performed without and with harmonics. FINDINGS: There are scattered areas of fibroglandular density (ACR BI-RADS breast composition Category b). There are no significant masses, abnormal calcifications, or other abnormalities. Parenchymal pattern is similar to prior studies. There is no developing density or architectural abnormality. The breasts are symmetrically smaller consistent with the history of weight loss. The axilla and skin contours are unremarkable. No significant changes. No skin thickening or coarsening of the Troy's ligaments. There is some fine and urinary artifact overlying the axilla. Ultrasound demonstrates no cystic or solid mass or architectural abnormality. No focal duct ectasia. No hyperemia. Chest wall soft tissues unremarkable. No skin thickening or edema tracking in soft tissue planes. Results are discussed with the patient at time of visit. MM/MM tomosynthesis diagnostic BI IMPRESSION: 1. No mammographic evidence of malignancy or inflammatory changes. 2. Unremarkable targeted right breast ultrasound. ASSESSMENT: BI-RADS 2: Benign RECOMMENDATION: 1. Patient should be managed based on the clinical impression. If clinically indicated, further evaluation may be considered with surgical consult. Decision to proceed with biopsy should be based on clinical grounds and degree of clinical concern. 2. Otherwise, routine annual screening mammography. This patient's information was entered into a reminder system with a target due date for their next mammogram.
== END 2022-07-27 15:33 | disposition home or self-care (01) ==
LOC: HO.MAMMO 15:32
PROVIDERS: PCP Internal Medicine; Visit Provider Internal Medicine
DX: N63.15 Unspecified lump in the right breast, overlapping quadrants (principal)
CPT/HCPCS: 76642; 77062; 77066

== ENCOUNTER 2022-08-29 03:53 | Emergency (ER) | payer OTHER, SELFPAY ==
[2022-08-29 04:10] VITALS: BP 144/83; PULSE 92; RESP 16; TEMP 36.4; O2SAT 99; BMI 25.0
== END 2022-08-29 05:46 | disposition left against medical advice (07) ==
PROVIDERS: Emergency Provider Emergency Medicine; PCP Internal Medicine
DX: M79.601 Pain in right arm (principal)
CPT/HCPCS: 99281

== ENCOUNTER 2022-12-21 13:56 | Outpatient (REF) | payer OTHER, SELFPAY ==
--- NOTE | ~2022-12-21 | XR_ITS ---
EXAMINATION: XR HAND, RIGHT CLINICAL INFORMATION: Right hand pain. COMPARISON: Right hand 03/12/2019. TECHNIQUE: PA, lateral, and oblique views of the right hand. FINDINGS: There has been healing of the previously seen intra-articular fracture at the base of the 5th metacarpal. At this time, no significant abnormality is seen. The bones and soft tissues are unremarkable. No fracture. Alignment is anatomic. Joint spaces are maintained. No erosions or soft tissue calcifications. XR/XR hand RT 2V IMPRESSION: Normal right hand.
== END 2022-12-21 13:57 | disposition home or self-care (01) ==
LOC: HO.XRAY 13:56
PROVIDERS: PCP Internal Medicine; Visit Provider Internal Medicine
DX: M79.641 Pain in right hand (principal)
CPT/HCPCS: 73120

== ENCOUNTER 2023-01-30 08:05 | Outpatient (AMB) | payer OTHER, SELFPAY ==
[2023-01-30 08:06] VITALS: BP 138/70; PULSE 79; O2SAT 97; BMI 23.6
--- NOTE | 2023-01-30 08:06 | A.OFFPC_ITS ---
Vital Signs 01/30/23 08:06 Height 5 ft 5 in Weight 142 lb BMI 23.6 BP 138/70 Blood Pressure Location Lt brachial Position Sitting Pulse 79 Pulse Source Pulse Oximeter Pulse Oximetry (%) 97 Oxygen Delivery Method Room Air Intake Visit Reasons: Cataract &Lasik/ Rt eye Cataract/- Allergies amoxicillin [AMOXICILLIN] Allergy (Intermediate, Verified 01/30/23 08:07) Rash carbamazepine [From Tegretol] Allergy (Intermediate, Verified 01/30/23 08:07) Rash erythromycin base Allergy (Intermediate, Verified 01/30/23 08:07) Rash ketorolac Allergy (Intermediate, Verified 01/30/23 08:07) Anaphylaxis Penicillins [PENICILLINS] Allergy (Intermediate, Verified 01/30/23 08:07) Rash Tobacco use date assessed: 01/30/23 Dental Screening Dental Screen Date: 01/30/23 Did you have a dental visit in the last 12 months?: No Did you have a dental problem in the last 6 months where you did not have access to dental care?: No Was dental information given to patient?: No HPI HPI Comments History of Present Illness Details 52-year-old female past medical history significant for depression migraines and iron deficiency anemia. Patient of Dr. Harrell presents today fro pre-op appointment for cataract surgery and lasik Right eye 02/16/23, left eye 03/22. Dr. [facility], under [facility]. Patient denies any previous complications to being under anesthesia. Patient denies chest pain, palpitations, shortness of breath and syncope. Preop labs and EKG ordered. [facility] Medical History Abnormal EKG Depression with anxiety GERD (gastroesophageal reflux disease) Hyperlipidemia Insomnia Iron deficiency anemia Left knee pain Migraines Moderate recurrent major depression Obesity Overweight (BMI 25.0-29.9) Physical exam Pseudotumor cerebri PTSD (post-traumatic stress disorder) Weight loss Surgical History H/O total hysterectomy History of back surgery History of cholecystectomy History of surgery of head Family History Father No problems noted. Mother Pneumonia Social History (Reviewed 01/31/22 @ 15:08 by RADHA Mon Housing: Apartment Alcohol intake: never Patient Tobacco Use Status: Former Tobacco user Quit Date: 2019 Tobacco use type: Cigarette e-Cigarette/Vaping Use: Never Used Second Hand Smoke Exposure: No service: No Current occupational status: disabled Current occupation: rt handed Cognitive needs: No Hearing needs: No Vision needs: Yes Questionnaire PHQ-9 Over the last 2 weeks, how often have you been bothered by any of the following problems? 1. Little interest or pleasure in doing things: several days 2. Feeling down, depressed, or hopeless: nearly every day 3. Trouble falling or staying asleep, or sleeping too much: more than half the days 4. Feeling tired or having little energy: more than half the days 5. Poor appetite or overeating: more than half the days 6. Feeling bad about yourself - or that you are a failure or have let yourself or your family down: several days 7. Trouble concentrating on things, such as reading the newspaper or watching television: several days 8. Moving or speaking so slowly that other people could have noticed. Or the opposite - being so fidgety or restless that you have been moving around a lot more than usual: not at all 9. Thoughts that you would be better off or of hurting yourself in some way: several days Total score: 13 Depression Screening Interpretation: Positive Depression Screening Follow-up: Community Mental Health Worker F/U Source: Developed by Drs. Rajesh Sherman, Yelena Ugalde, Dragan Oleary and colleagues, with an educational manohar from [employer]. Thrive Questionnaire Date Thrive assessed: 01/30/23 I am a: Patient What is your living situation today?: I have a steady place to live Within the past 12 months, did the food you bought not last and you didn't have the money to get more?: Never true Within the past 12 months, did you worry whether your food would run out before you got money to buy more?: Never true Do you have trouble paying for medicines?: No Do you have trouble getting transportation to medical appointments?: No Do you have trouble paying your heating and electricity bill?: No Do you have trouble taking care of your child, family member or friend?: No Do you have trouble with day-to-day activities such as bathing, preparing meals, shopping, managing finances, etc.?: No Are you currently unemployed and looking for a job?: No Are you interested in more education?: No Currently or been in a relationship where the following occur: no concerns reported AUDIT C Alcohol Use Questionnaire (AUDIT-C) 1. How often do you have a drink containing alcohol?: Never Total Score: 0 ROSA-7 AMB Questionnaire ROSA-7 Date ROSA - 7 assessed: 01/30/23 Feeling nervous, anxious, or on edge: 3 = Nearly every day Not being able to stop or control worryin = Nearly every day Worrying too much about different things: 3 = Nearly every day Trouble relaxin = Nearly every day Being so restless that it is hard to sit still: 2 = More than half the days Becoming easily annoyed or irritable: 1 = Several days Feeling afraid as if something awful might happen: 1 = Several days Total ROSA-7 score (0-4 normal; 5-9 mild; 10-14 moderate; 15-21 severe): 16 Source: Developed by Drs. Rajesh Sherman, Yelena Ugalde, Dragan Oleary and colleagues, with an educational manohar from [employer]. ROSA-7 Assessment Billing ROSA-7 Assessment Tool: ROSA-7 Assessment 95215 Review of Systems Const Denies chills, Denies fatigue, Denies fever(s) and Denies poor appetite Eyes Denies no additional complaints ENT Reports Normal hearing present Card Denies chest pain, Denies syncope, Denies rapid heart rate and Denies dyspnea Resp Denies cough and Denies dyspnea GI Denies change in stool character, Denies constipation, Denies diarrhea, Denies nausea and Denies vomiting Denies urinary frequency, Denies dysuria and Denies urinary urgency Neuro Reports Normal hearing present, Denies confusion and Denies syncope Psych Denies confusion Endo Denies fatigue Physical exam (Primary Care) Vital Signs: Last Vital Signs Pulse 79 01/30/23 08:06 BP 138/70 01/30/23 08:06 Pulse Ox 97 01/30/23 08:06 Oxygen Delivery Method Room Air 01/30/23 08:06 BMI result Body Mass Index 23.6 Tobacco/Smoking Status: Tobacco use Status Tobacco use date assessed 01/30/23 01/30/23 08:13 Patient Tobacco Use Status Former Tobacco user 01/30/23 08:13 Tobacco use type Cigarette 01/30/23 08:13 e-Cigarette/Vaping Use Never Used 01/30/23 08:13 PHQ-9: PHQ-9 Score PHQ-9: Total score 13 01/30/23 08:20 Depression Screening Interpretation: Positive Depression Screening Follow-up: Community Mental Health Worker F/U Thrive Assessment: Date of Thrive Assessment Date Thrive assessed 01/30/23 01/30/23 08:13 Currently or been in a relationship where the following occur: no concerns reported Const General: No confusion Orientation/consciousness: No confusion HENMT Head: Yes normocephalic and Yes atraumatic Eyes Conjunctivae: conjunctivae normal Chest Chest palpation & inspection: normal inspection of the chest Resp Effort & Inspection: normal respiratory effort Auscultation: clear to auscultation bilaterally, no crackles, no rhonchi and no wheezes Cardio Rate: regular rate Rhythm: regular rhythm Heart sounds: S1 normal heart sound present and S2 normal heart sound present GI Inspection: Yes normal to inspection Neuro General: No confusion Cranial nerves: Yes Normal hearing present Extrem General: No edema Assessment and Plan Assessment & Plan (1) Preop examination: Code(s): Z01.818 - Encounter for other preprocedural examination Plan: Months preop labs and EKG reviewed addendum will be made to this note with patient able to proceed with scheduled surgery. (2) GERD (gastroesophageal reflux disease): Code(s): K21.9 - Gastro-esophageal reflux disease without esophagitis Qualifiers: Esophagitis presence: esophagitis presence not specified Qualified Code(s): K21.9 - Gastro-esophageal reflux disease without esophagitis Plan: Continue on omeprazole 40 mg daily. Plan Keep scheduled follow-up with. PCP or follow-up sooner needed Orders: Orders Comprehensive [place]. Panel Fast Today Z.812 - Encounter for preprocedural laboratory examination TSH reflex Free T4 Today Z.81 - Encounter for preprocedural laboratory examination ECG 12 lead EKG Today Z.81 - Encounter for preprocedural laboratory examination Complete Blood Count no Diff Today Z.81 - Encounter for preprocedural laboratory examination Coding Level of Care Code Est Pt Level 3 (32845) Diagnoses Preop examination Z01.818 GERD (gastroesophageal reflux disease) K21.9 Esophagitis presence: esophagitis presence not specified Additional Codes ROSA-7 Assessment Billing - ROSA-7 Assessment Tool: ROSA-7 Assessment 59513 ([id number]) PHQ-9 - 23980 - PHQ-9 Billing: Y ([id number])
== END 2023-01-30 08:55 | disposition home or self-care (01) ==
PROVIDERS: PCP Internal Medicine; Visit Provider Nurse Practitioner Family
DX: Z01.818 Encounter for other preprocedural examination (principal); K21.9 Gastro-esophageal reflux disease without esophagitis
CPT/HCPCS: 99213

== ENCOUNTER 2023-02-14 08:52 | Outpatient (REF) | payer OTHER, SELFPAY ==
--- NOTE | 2023-02-14 08:55 | ECG_ITS ---
Test Reason : pre op Blood Pressure : / mmHG Vent. Rate : 073 BPM Atrial Rate : 073 BPM P-R Int : 158 ms QRS Dur : 094 ms QT Int : 386 ms P-R-T Axes : 059 017 050 degrees QTc Int : 425 ms Normal sinus rhythm Normal ECG When compared with ECG of 04-AUG-2020 22:16, Criteria for Anterior infarct are no longer Present Criteria for Inferior infarct are no longer Present ST no longer depressed in Anterior leads T wave inversion no longer evident in Anterior leads Referred By: Marielos Coleman Electronically Signed By:JOVANA JACKMAN
[2023-02-14 09:36] LABS: Hemoglobin 12.4 g/dl (12.0-16.0); Mean Corpuscular HGB Conc 34.4 g/dl (31.0-35.0); Mean Corpuscular Volume 84.3 fL (80.0-98.0); Mean Platelet Volume 9.6 fL (9.4-12.3); Platelet Count 207 X10*3/uL (160-400); Red Blood Count 4.27 X10*6/uL (4.20-5.50); Red Cell Distribution Width 12.3 % (11.0-16.0)
[2023-02-14 10:25] LABS: Alanine Aminotransferase 18 U/L (0-31); Albumin Level 4.1 g/dL (3.5-5.0); Alkaline Phosphatase 101 U/L (39-117); Anion Gap 11 (12-20); Aspartate Amino Transferase 22 U/L (5-31); Bilirubin Total 0.3 mg/dL (0.0-1.0); Blood Urea Nitrogen 18 mg/dL (9-16); Calcium 9.5 mg/dL (8.4-10.2); Carbon Dioxide 28 mmol/L (22-29); Chloride 106 mmol/L (96-108); Estimated Glomerular Filt Rate > 60; Glucose Fasting 92 mg/dL (60-99); Potassium 3.6 mmol/L (3.3-5.1); Sodium 141 mmol/L (135-145); Total Protein 6.7 g/dL (6.5-8.0)
[2023-02-14 10:45] LABS: TSH reflex Free T4 0.91 uIU/mL (0.32-4.0)
== END 2023-02-14 08:53 | disposition home or self-care (01) ==
LOC: HO.LAB 08:52
PROVIDERS: Visit Provider Nurse Practitioner Family
DX: Z01.812 Encounter for preprocedural laboratory examination (principal)
CPT/HCPCS: 36415; 80053; 84443; 85027; 93005

== ENCOUNTER 2023-03-12 16:35 | Outpatient (AMB) | payer OTHER, SELFPAY ==
[2023-03-12 16:38] VITALS: BP 118/80; BMI 25.1
--- NOTE | 2023-03-12 16:38 | A.OFFPC_ITS ---
Vital Signs 03/12/23 16:38 Height 5 ft 5 in Weight 151 lb BMI 25.1 BP 118/80 Blood Pressure Location Lt brachial Position Sitting Intake Visit Reasons: F/ U Intake Note: Patient here for a follow up, c/o rash on arm Shift Coordinator Required: No Accompanied by: Self / Same As Patient Allergies amoxicillin [AMOXICILLIN] Allergy (Intermediate, Verified 03/12/23 16:49) Rash carbamazepine [From Tegretol] Allergy (Intermediate, Verified 03/12/23 16:49) Rash erythromycin base Allergy (Intermediate, Verified 03/12/23 16:49) Rash ketorolac Allergy (Intermediate, Verified 03/12/23 16:49) Anaphylaxis Penicillins [PENICILLINS] Allergy (Intermediate, Verified 03/12/23 16:49) Rash Medication List - Last Reconciled 03/12/23 by Sasha Wilkins MD albuterol sulfate 90 mcg/actuation 2 puffs inhalation Q6H PRN 30 days omeprazole 40 mg PO DAILY trazodone 200 mg PO BEDTIME PRN Tobacco use date assessed: 01/30/23 Dental Screening Dental Screen Date: 03/12/23 Did you have a dental visit in the last 12 months?: No Did you have a dental problem in the last 6 months where you did not have access to dental care?: No Was dental information given to patient?: Patient has dentist HPI HPI Comments History of Present Illness Details This is a 52-year-old female with moderate recurrent major depression, mild asthma and GERD that complains of a rash in the arms maculopapular pruritic that looks like bedbugs. She said were she lives there are bed bugs. Depression stable with trazodone. Use rescue inhaler once a month. GERD stable with PPIs. No one in her household has the same rash. [facility] Medical History (Updated 03/12/23 @ 18:05 by Sasha Wilkins MD) Physical exam Moderate recurrent major depression Weight loss Overweight (BMI 25.0-29.9) Migraines Abnormal EKG Iron deficiency anemia Obesity Left knee pain Pseudotumor cerebri PTSD (post-traumatic stress disorder) Insomnia Depression with anxiety Hyperlipidemia GERD (gastroesophageal reflux disease) Surgical History History of surgery of head H/O total hysterectomy History of cholecystectomy History of back surgery Family History Father No problems noted. Mother Pneumonia Social History Housing: Apartment Alcohol intake: never Patient Tobacco Use Status: Former Tobacco user Quit Date: 2019 Tobacco use type: Cigarette e-Cigarette/Vaping Use: Never Used Second Hand Smoke Exposure: No service: No Current occupational status: disabled Current occupation: rt handed Cognitive needs: No Hearing needs: No Vision needs: Yes Questionnaire Thrive Questionnaire Date Thrive assessed: 01/30/23 ROSA-7 AMB Questionnaire ROSA-7 Date ROSA - 7 assessed: 01/30/23 Source: Developed by Drs. Rajesh Sherman, Yelena Ugalde, Dragan Oleary and colleagues, with an educational manohar from [employer]. Review of Systems Const All systems reviewed & are unremarkable except as noted in HPI and below Eyes Reports no additional complaints, Denies change in vision and Denies other visual disturbances Card Denies chest pain at rest, Denies chest pain with activity, Denies edema, Denies irregular heart rhythm, Denies claudication, Denies dyspnea, Denies dyspnea on exertion, Denies orthopnea, Denies paroxysmal nocturnal dyspnea and Denies slow heart rate Resp Denies cough, Denies dyspnea and Denies dyspnea on exertion GI Denies abdominal pain, Denies change in bowel habits, Denies excessive flatus, Denies nausea and Denies vomiting Denies urinary incontinence, Denies urinary hesitancy and Denies urinary urgency Musc Denies abnormal gait, Denies atrophy, Denies deformity and Denies limited range of motion Skin/Breast Denies bleeding lesions, Denies changing lesions and Reports rash Neuro Denies abnormal gait and Denies lack of coordination Physical exam (Primary Care) Vital Signs: Last Vital Signs BP 118/80 03/12/23 16:38 BMI result Body Mass Index 25.1 Tobacco/Smoking Status: Tobacco use Status Tobacco use date assessed 01/30/23 03/12/23 16:42 Patient Tobacco Use Status Former Tobacco user 03/12/23 16:42 Tobacco use type Cigarette 03/12/23 16:42 e-Cigarette/Vaping Use Never Used 03/12/23 16:42 Thrive Assessment: Date of Thrive Assessment Date Thrive assessed 01/30/23 03/12/23 16:42 Eyes General: appearance normal, both eyes and all related structures Eyelids: Yes eyelids normal Conjunctivae: conjunctivae normal Neck Neck: Yes normal visual inspection and Yes supple Resp Effort & Inspection: normal respiratory effort Auscultation: clear to auscultation bilaterally Cardio Jugular venous distension: no JVD Rate: regular rate Rhythm: regular rhythm Heart sounds: S1 normal heart sound present and S2 normal heart sound present Skin Other: Maculopapular pruritic rash in bilateral forearms Extrem General: Yes full ROM Office Procedures Flu Questionnaire Does the patient have a severe egg allergy?: No Immunizations flu vacc [id number] 6mos up(PF) 60 mcg(15 mcgx4)/0.5 mL IM syringe Performing Provider: Sasha Wilkins MD [facility] Documented (not given) by: HANDY Manzo on 03/12/23 16:44 Reason Not Given: Patient Refused Assessment and Plan Assessment & Plan (1) Moderate recurrent major depression: Code(s): F33.1 - Major depressive disorder, recurrent, moderate Plan: Continue trazodone. (2) GERD (gastroesophageal reflux disease): Code(s): K21.9 - Gastro-esophageal reflux disease without esophagitis Qualifiers: Esophagitis presence: esophagitis presence not specified Qualified Code(s): K21.9 - Gastro-esophageal reflux disease without esophagitis Plan: Continue PPIs (3) Mild asthma: Code(s): J45.909 - Unspecified asthma, uncomplicated Plan: Use rescue inhaler as needed (4) Rash: Code(s): R21 - Rash and other nonspecific skin eruption Plan: Start cream. Orders: Orders Influenza [id number] Immunization Today Z23 - Encounter for immunization Medications: New betamethasone valerate 0.1% 1 appl topical BID 30 days PRN 60 mL 0RF skin irritation prednisone Take 4 tabs for 2 days, then 3 tabs for 2 days, then 2 tabs for 2 days, then 1 tab for 2 days 10 mg PO DIRECTED 8 days 20 tabs 0RF hydroxyzine HCl 25 mg PO BID 30 days PRN 60 tabs 0RF itching Coding Level of Care Code Est Pt Level 4 (96832) Diagnoses Moderate recurrent major depression F33.1 Gastroesophageal reflux disease, unspecified whether esophagitis present K21.9 Esophagitis presence: esophagitis presence not specified Mild asthma J45.909 Rash R21 Time Spent (min) 21
== END 2023-03-12 17:00 | disposition home or self-care (01) ==
PROVIDERS: PCP Internal Medicine; Visit Provider Internal Medicine
DX: F33.1 Major depressive disorder, recurrent, moderate (principal); K21.9 Gastro-esophageal reflux disease without esophagitis; J45.909 Unspecified asthma, uncomplicated; R21 Rash and other nonspecific skin eruption
CPT/HCPCS: 99214

== ENCOUNTER 2023-12-12 09:41 | Outpatient (REF) | payer OTHER, SELFPAY | END 2023-12-12 09:42 | disposition home or self-care (01) | LOC: HO.MAMMO 09:41 | PROVIDERS: Visit Provider Internal Medicine | DX: Z13.89 Encounter for screening for other disorder (principal) ==

== ENCOUNTER 2024-02-13 07:49 | Outpatient (AMB) | payer OTHER, SELFPAY ==
[2024-02-13 07:51] VITALS: BP 114/70; PULSE 67; O2SAT 96; BMI 25.6
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
== END 2024-02-13 08:15 | disposition home or self-care (01) ==
PROVIDERS: PCP Internal Medicine; Visit Provider Internal Medicine
DX: J02.9 Acute pharyngitis, unspecified (principal); F33.1 Major depressive disorder, recurrent, moderate; R20.2 Paresthesia of skin; M79.642 Pain in left hand; R21 Rash and other nonspecific skin eruption; M79.641 Pain in right hand
CPT/HCPCS: 96127; 99214; G2211

== ENCOUNTER 2024-03-26 12:56 | Outpatient (REF) | payer OTHER, SELFPAY ==
--- NOTE | 2024-03-26 12:59 | EMG_ITS ---
Chief complaint: Numbness in fingertips, admits to numbness in feet as well. Muscle aches. History of Chiari 1 malformation, pseudotumor cerebri, craniotomy, INTERIOR DESIGN PRINCIPAL shunt. History of cervical decompression laminectomy. Reason for referral: Evaluate for Carpal Tunnel Syndrome or neuropathy Referred by: Dr. Mohamud Procedure done: Bilateral upper extremities NCS/EMG Precautions and/or limitations: Prior cervical surgery Poor tolerance of needle EMG The limb temperature was monitored continuously and remained between 32-36 degrees C during the performance of the NCS. Nerve Conduction Studies Anti Sensory Summary Table ?Stim Site NR Onset (ms) Norm Onset (ms) Peak (ms) Norm Peak (ms) O-P Amp (?V) Norm O-P Amp Site1 Site2 Delta-0 (ms) Dist (cm) Teo (m/s) Norm Teo (m/s) Left Median Anti Sensory (2nd Digit) Wrist ? 2.7 3.3 <3.6 26.9 >10 Wrist 2nd Digit 2.7 14.0 52 Right Median Anti Sensory (2nd Digit) Wrist ? 2.2 2.9 <3.6 44.9 >10 Wrist 2nd Digit 2.2 14.0 64 Right Radial Anti Sensory (Thumb) Forearm ? 1.5 2.0 <3.1 29.8 Forearm Thumb 1.5 0.0 Left Ulnar Anti Sensory (5th Digit) Wrist ? 2.3 3.0 <3.7 22.6 >15.0 Wrist 5th Digit 2.3 14.0 61 Right Ulnar Anti Sensory (5th Digit) Wrist ? 2.0 2.7 <3.7 27.9 >15.0 Wrist 5th Digit 2.0 14.0 70 Motor Summary Table ?Stim Site NR Onset (ms) Norm Onset (ms) O-P Amp (mV) Norm O-P Amp iAmp (mV) Amp (1st) (%) Site1 Site2 Delta-0 (ms) Dist (cm) Teo (m/s) Norm Teo (m/s) Left Median Motor (Abd Poll Brev) Wrist ? 3.7 <3.9 8.7 >4.5 10.4 100.0 Elbow Wrist 3.6 17.0 47 >45 Elbow ? 7.3 7.6 9.5 87.4 Right Median Motor (Abd Poll Brev) Wrist ? 3.1 <3.9 15.1 >4.5 18.2 100.0 Elbow Wrist 3.4 18.0 53 >45 Elbow ? 6.5 14.7 18.1 97.4 Left Ulnar Motor (Abd Dig Minimi) Wrist ? 2.5 <3.0 7.3 >5 9.0 100.0 B Elbow Wrist 2.5 14.5 58 >45 B Elbow ? 5.0 6.4 8.1 87.7 A Elbow B Elbow 1.4 10.0 71 >45 A Elbow ? 6.4 6.4 8.1 87.7 Right Ulnar Motor (Abd Dig Minimi) Wrist ? 2.3 <3.0 7.7 >5 9.2 100.0 B Elbow Wrist 2.9 16.0 55 >45 B Elbow ? 5.2 7.2 8.7 93.5 A Elbow B Elbow 1.4 10.0 71 >45 A Elbow ? 6.6 6.7 8.2 87.0 EMG ?Side Muscle Nerve Root Ins Act Fibs Psw Amp Dur Poly Recrt Int Pat Comment Left 1stDorInt Ulnar C8-T1 Nml Nml Nml Nml Nml 0 Nml Complete Left FlexCarRad Median C6-7 Nml Nml Nml Nml Nml 0 Nml Complete Left Biceps Musculocut C5-6 Nml Nml Nml Nml Nml 0 Nml Complete Left Triceps Radial C6-7-8 Nml Nml Nml Nml Nml 0 Nml Complete Left Deltoid Axillary C5-6 Nml Nml Nml Nml Nml 0 Nml Complete FINDINGS: All motor and sensory nerves tested showed normal latencies, amplitudes and conduction velocities. Concentric needle EMG was performed in selected muscles of the left upper extremity. Study did not reveal signs of electric abnormalities as shown in the table above. IMPRESSION: 1. This is a normal study. 2. There is no electrodiagnostic evidence for median neuropathy, ulnar neuropathy, brachial plexopathy, or cervical radiculopathy. Thank you for your kind referral. Yael Joyner MD, DOROTHY Board Certified, [place] [employer] and [employer] (ABPMR) Board Certified, [place] [employer] Electro[employer] (ABEM) CODIN [phone] MTDD
== END 2024-03-26 12:57 | disposition home or self-care (01) ==
LOC: HO.NEURO 12:56
PROVIDERS: PCP Internal Medicine; Visit Provider Internal Medicine
DX: R20.2 Paresthesia of skin (principal)
CPT/HCPCS: 95886; 95911

== ENCOUNTER → 2024-03-26 12:59 | Outpatient (BNV) | payer OTHER, SELFPAY | PROVIDERS: PCP Internal Medicine; Visit Provider Physical Medicine & Rehabilitation | DX: R20.0 Anesthesia of skin (principal); R20.2 Paresthesia of skin | CPT/HCPCS: 95886; 95911 ==